=== PATIENT | female | born 1930 | race Caucasian/White ===

== ENCOUNTER 2018-10-21 01:02 | Inpatient (IN) ==
[2018-10-21] MEDS ORDERED: REGLAN IV ONE (01:30)
[2018-10-21] MEDS ORDERED: NS 500 ML IV ONE (01:30)
[2018-10-21] MEDS ORDERED: NS 1,000 ML IV ONE (01:31)
[2018-10-21 02:54] LABS: BASO# 0.01 X1000 (0.0-0.2); BASO% 0.1 % (0.0-0.8); EOS# 0.06 X1000 (0.0-0.7); EOS% 0.5 % (0.0-10.0); HEMATOCRIT 38.1 % (37.0-47.0); HEMOGLOBIN 12.4 g/dL (12.0-16.0); IMM GRAN# 0.05 X1000 (0.0-0.04); IMM GRAN% 0.4 % (0.0-0.5); LYMPH# 0.57 X1000 (1.2-3.4); LYMPH% 4.3 % (20.5-51.1); MCH 30.4 PG (27-31); MCHC 32.5 g/dL (33-37); MCV 93.4 FL (81-99); MONO# 0.91 X1000 (0.11-0.59); MONO% 6.9 % (1.7-9.3); MPV 12.3 FL (7.4-10.4); NEUT# 11.66 X1000 (1.4-6.5); NEUT% 87.8 % (42.2-75.2); PLT 262 X1000 (130-400); RBC 4.08 XMIL (4.2-5.4); RDW 16.4 % (11.5-14.5); WBC 13.26 X1000 (4.8-10.8)
[2018-10-21 03:04] LABS: ALB/GLOB RATIO 1.1; ALBUMIN 4.3 g/dL (3.5-5.0); CALCIUM 10.3 mg/dL (8.8-10.2); CREATININE 1.8 mg/dL (0.5-0.9); POTASSIUM 5.3 mmol/L (3.5-5.1); TOTAL BILIRUBIN 0.35 mg/dL (0.20-1.00); TOTAL PROTEIN 8.1 g/dL (6.3-8.3)
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
--- NOTE | 2018-10-21 06:58 | Diag Imaging Result Doc PS360 ---
CT ABDOMEN/PELVIS W/O CONTRAST - 10/21/2018 INDICATION: N/V COMPARISON: 06/21/2013, 02/16/2018 FINDINGS: There is some mild linear atelectasis in the lung bases. Heart size is top normal. No pericardial effusion. There are cholecystectomy clips. Multicystic left kidney. Stable severe thinning of the abdominal muscle wall. Stable fat-containing left lateral flank hernia. No bowel obstruction or inflammation. No radiodense renal stones. No hydronephrosis or hydroureter. There is some residual barium in the colon from the swallowing study. Stable diverticulosis of the distal colon. Uterus is absent. Urinary bladder and rectum are normal. There are moderate degenerative changes of the spine. No acute or suspicious bony lesion. IMPRESSION: Diverticulosis coli. No acute process. This exam was performed using automated exposure control, adjustment of mA or kV according to patient size, and/or use of iterative reconstruction technique Electronically signed by Ross Keyes 10/21/2018 6:55 AM
[2018-10-21] MEDS ORDERED: ZOFRAN IV PRN (07:54)
[2018-10-21] MEDS ORDERED: TYLENOL PO PRN (07:54)
[2018-10-21] MEDS ORDERED: NS 1,000 ML IV SCH (07:54)
--- NOTE | 2018-10-21 08:26 | HISTORY AND PHYSICAL ---
ADDENDUM: Patient presented with nausea and vomiting starting last night which was intractable. She has had issues with this recently. She has seen Dr. Barry. I think she had a colonoscopy and EGD. All these tests have been within the last couple of days. She had a barium swallow. CT done last night really was unremarkable, but it was done without contrast, which is relatively low yield. Her vitals were unremarkable. She did have a little bit of leukocytosis. She has been treated recently for UTI. In any case, patient was evaluated. She was dehydrated. We will continue to monitor. Get IV fluids and antiemetics. We will go ahead and consult Dr. Barry. We will have him re-evaluate Dr. Lopez. We will resume care here this morning. This is a face-to- face encounter with Victoria Dominguez. cc: Darren Gonzalez MD
[2018-10-21 10:06] LABS: ALB/GLOB RATIO 1.4; ALBUMIN 3.8 g/dL (3.5-5.0); CALCIUM 8.9 mg/dL (8.8-10.2); CREATININE 1.7 mg/dL (0.5-0.9); TOTAL BILIRUBIN 0.39 mg/dL (0.20-1.00); TOTAL PROTEIN 6.6 g/dL (6.3-8.3)
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
[2018-10-21] MEDS: PEPCID IV SCH ×2 (10:21→20:16)
--- NOTE | 2018-10-21 14:03 | GASTROENTEROLOGY CONSULTATION ---
DATE: 10/21/2018 REASON FOR CONSULTATION: Nausea, vomiting, diarrhea. HISTORY OF PRESENT ILLNESS: This is an 88-year-old female known to our practice. She was just seen in the office on 10/11/2018, indications for nausea, abdominal pain, GERD, and dysphagia. She had an EGD on 10/18/2018. Findings showed an esophageal ring, proximal esophagus that was dilated, and mild gastritis. Pathology showed chronic inactive gastritis, H. pylori was negative. She was also referred for a modified barium swallow on 10/20/2018. Findings showed mild presbyesophagus but no evidence of achalasia or aspiration. She had some mild spasms with delayed emptying into the stomach and a small amount of redirection of the bolus observed but there was no repenetration or aspiration noted. The patient states after her barium swallow yesterday, she went home and ate a peach, that is the only thing she had eaten yesterday and almost immediately she states she had nausea, vomiting, and diarrhea. She states she probably vomited over 10 times. She did not see any blood in the emesis. No blood in the stool or black stools. She came in to the emergency room for further evaluation. She states her last bowel movement was early this morning, that is reported as loose, and her last episode of vomiting was last night. Currently, she is feeling some better. She does report some mild abdominal tenderness. She has been treated recently with antibiotics for a urinary tract infection. She has denied chest pain or shortness of breath. No reported fever. PAST MEDICAL HISTORY: GERD, dysphagia with recent esophageal dilation, history of constipation on MiraLAX, history of anemia, cataracts, diverticulosis, dementia, depression/anxiety, hyperlipidemia, hypertension, hypertriglyceridemia, glaucoma, hypothyroidism, obstructive sleep apnea, osteoarthritis, osteoporosis, history of palpitations, history of stroke. PAST SURGICAL HISTORY: Left shoulder surgery, cataract surgery, exploratory laparotomy. The patient has had recent EGD on 10/18/2018. ALLERGIES: Codeine causing hives, sulfonamides with unknown reaction. HOME MEDICATIONS: Tylenol Arthritis 650 mg as needed, aspirin 325 mg daily, BuSpar 10 mg 3 times a day, calcium plus D daily, Catapres 0.1 mg 3 times a day as needed, Lexapro 20 mg daily, Pepcid 20 mg twice daily, Plendil 2.5 mg twice daily, Tricor 145 mg every night, levothyroxine 88 mcg daily, Xalatan eyedrops at night, Cozaar 100 mg daily, magnesium 2 tablets daily, Remeron 15 mg every night, Prilosec 40 mg daily, spironolactone 25 mg daily, zinc 1 daily. SOCIAL HISTORY: Denies tobacco or alcohol use. REVIEW OF SYSTEMS: Per history of present illness. PHYSICAL EXAMINATION: Vital signs: Temperature 98.0, pulse 77, respirations 16, blood pressure 151/57. General: The patient is awake and alert in no acute distress. She states she is feeling some better. HEENT: Normocephalic, atraumatic. Pupils equal, round, and reactive to light. Sclerae nonicteric. Cardiovascular: Regular rate and rhythm. Pulmonary: Lung sounds essentially clear bilaterally. Abdomen: Soft, nondistended. She has some slight tenderness with palpation, otherwise positive bowel sounds. Extremities: No lower extremity edema noted. Neurologic: Cranial nerves II through XII grossly intact. The patient is awake and alert, oriented to person, place, and time. DIAGNOSTIC RESULTS: Laboratory, hematology: WBC 13.26, hemoglobin 12.4, hematocrit 38.1, MCV 93.4, platelet 262. Chemistry: Sodium 137, potassium 5.0, chloride 108, CO2 19, BUN 42, creatinine 1.7, glucose 106, calcium 8.9, magnesium 2.1, total bilirubin 0.39, AST 31, ALT 17, alkaline phosphatase 45. CT scan of the abdomen and pelvis showed diverticulosis. There was a stable fat-containing left flank hernia. No bowel obstruction or inflammation. Some noted residual barium in the colon from recent barium swallow study. ASSESSMENT AND PLAN: 1. Nausea and vomiting, improved. 2. Diarrhea. The patient has had recent urinary tract infection and antibiotic use. Stool studies have been ordered. 3. Dysphagia, nausea, gastroesophageal reflux disease, recent esophagogastroduodenoscopy showing mild gastritis and an esophageal ring that was dilated. She was recommended to continue PPI and started on Carafate. 4. Diarrhea. Stool studies have been ordered. Possible side effect from recent antibiotic use. Will rule out Clostridium difficile. Continue symptomatic treatment and supportive care. Further plans will be made according to her progress. I have discussed this case with Dr. Barry. Thank you for this consultation. Dictated by MALENA Plata for Carlo Barry MD cc: MALENA Calixto MD Scott A. Matthews, MD
[2018-10-21] MEDS: SODIUM CHLORIDE 0.9% INJ SCH (20:16)
[2018-10-21 20:25] LABS: URINE SOURCE CLEAN CATCH
[2018-10-21 20:30] LABS: BILIRUBIN URINE NEGATIVE (NEGATIVE); BLOOD URINE TRACE (NEGATIVE); COLOR YELLOW; GLUCOSE URINE NEGATIVE (NEGATIVE); KETONE URINE NEGATIVE (NEGATIVE); LEUKOCYTES URINE LARGE (NEGATIVE); NITRITE URINE NEGATIVE (NEGATIVE); PH URINE 6.5; PROTEIN URINE NEGATIVE (NEGATIVE); SP GRAVITY URINE 1.012; TURBIDITY URINE CLEAR (CLEAR); UROBILINOGEN URINE NORMAL (NORMAL)
[2018-10-21 20:31] LABS: UR EPITHELIAL CELLS <10 /HPF (<10); URINE BACTERIA 2+ /HPF; URINE RBC <10 /HPF (<10); URINE WBC TNTC /HPF (<10)
[2018-10-21 23:28] LABS: UR CREAT RANDOM 68.2 mg/dL (11-20); UR PROT RANDOM 12.5 mg/dL
[2018-10-22 07:39] LABS: BASO# 0.01 X1000 (0.0-0.2); BASO% 0.3 % (0.0-0.8); EOS# 0.19 X1000 (0.0-0.7); EOS% 4.8 % (0.0-10.0); HEMATOCRIT 30.7 % (37.0-47.0); HEMOGLOBIN 9.7 g/dL (12.0-16.0); IMM GRAN# 0.02 X1000 (0.0-0.04); IMM GRAN% 0.5 % (0.0-0.5); LYMPH# 0.94 X1000 (1.2-3.4); LYMPH% 23.7 % (20.5-51.1); MCH 30.9 PG (27-31); MCHC 31.6 g/dL (33-37); MCV 97.8 FL (81-99); MONO# 0.36 X1000 (0.11-0.59); MONO% 9.1 % (1.7-9.3); MPV 11.8 FL (7.4-10.4); NEUT# 2.45 X1000 (1.4-6.5); NEUT% 61.6 % (42.2-75.2); PLT 197 X1000 (130-400); RBC 3.14 XMIL (4.2-5.4); RDW 16.9 % (11.5-14.5); WBC 3.97 X1000 (4.8-10.8)
[2018-10-22] MEDS: NS 1,000 ML IV SCH (09:46)
[2018-10-22] MEDS: PEPCID IV SCH ×2 (09:47→20:10)
[2018-10-22 10:08] LABS: CALCIUM 7.5 mg/dL (8.8-10.2); CREATININE 1.1 mg/dL (0.5-0.9); POTASSIUM 4.4 mmol/L (3.5-5.1)
--- NOTE | 2018-10-22 11:14 | PROGRESS NOTE ---
DATE: 10/22/2018 SUBJECTIVE: Mrs. Chandler was admitted to [facility] with intractable nausea, vomiting, and diarrhea. Her baseline creatinine of 1.0 had jumped to 1.8. She has had no further nausea or vomiting. Her diarrhea is beginning to taper. Stool studies were negative for Clostridium difficile antigen and toxin. She is tolerating clear liquids without nausea or vomiting. OBJECTIVE: Her blood pressure is fluctuating. Systolic blood pressures have been in the 170s whereas her diastolic blood pressures have ranged from 61 to 68. Temperature 98.1 degrees, pulse 66, respirations 24, BP 179/68. CV regular rate and rhythm. Lungs: Clear. Abdomen: Soft. Good bowel sounds. Diffusely tender. No rebound or guarding. LABS: Various laboratory studies were obtained. A CBC demonstrated white count 3.9, hemoglobin 9.7 hematocrit 30.7 and a platelet count of 197,000. Electrolytes demonstrated the following: Sodium 137, potassium 5.0, BUN 42 creatinine 1.7 and a glucose 106. ASSESSMENT AND PLAN: 1. Intractable nausea, vomiting, and diarrhea. Her nausea and vomiting have resolved. Diarrhea is tapering off. Stool studies were negative for Clostridium difficile toxin. We will continue famotidine 20 mg IV q. 12 hours and Carafate. A recent esophagogastroduodenoscopy demonstrated gastritis with dilatation of an esophageal ring. 2. Acute renal failure. We will continue gentle fluid resuscitation and recheck a basic metabolic profile in the morning. cc: MD Tyshawn Diez MD
[2018-10-22] MEDS: COZAAR PO SCH (17:26)
[2018-10-22] MEDS: SODIUM CHLORIDE 0.9% INJ SCH (20:10)
[2018-10-23] MEDS: NS 1,000 ML IV SCH ×2 (01:55→19:00)
[2018-10-23] MEDS: PEPCID IV SCH ×2 (08:40→20:27)
[2018-10-23] MEDS: COZAAR PO SCH (08:40)
--- NOTE | 2018-10-23 10:57 | Diag Imaging Result Doc PS360 ---
CHEST-PORTABLE - 10/23/2018 INDICATION: cough COMPARISON: 08/20/2017 FINDINGS: The lungs are normally expanded and clear. Heart size and mediastinal contours are normal. No pneumothorax or pleural effusion. IMPRESSION: Negative exam. Electronically signed by Ross Keyes 10/23/2018 10:55 AM
--- NOTE | 2018-10-23 10:59 | PROGRESS NOTE ---
DATE: 10/23/2018 SUBJECTIVE: Mrs. Chandler is tolerating a GI soft diet without nausea, vomiting, and her diarrhea has resolved. Renal function has improved greatly with fluids. Her creatinine has dropped from 1.8 to 1.1. She is with complaint of a persistent nonproductive cough which has been occurring off and on for 1 year. OBJECTIVE: Vital Signs: Temperature 97.9 degrees, pulse 65, respirations 15, blood pressure 184/60. Cardiovascular: Regular rate and rhythm. Lungs: Clear. Abdomen: Soft, nontender, with active bowel sounds. No hepatosplenomegaly. No abdominal bruits. ASSESSMENT AND PLAN: 1. Acute renal failure secondary to volume depletion due to gastrointestinal losses. Renal function has improved greatly. She is approaching her baseline of 1.0. I will stopped the fluids. I will recheck a BMP in the morning. 2. Hypertension. Blood pressure is too high. I will resume amlodipine 2.5 mg b.i.d. I am going to try to hold clonidine if possible because of its sedative affects on older patients. 3. General debility. We will increase physical activity and try to get her sitting up in a chair and walking in the halls. cc: MD Tyshawn Diez MD
[2018-10-23] MEDS: LEVAQUIN PO SCH (13:53)
[2018-10-23] MEDS: BUSPAR PO SCH ×2 (13:53→17:12)
[2018-10-23] MEDS ORDERED: PLENDIL PO ONE (16:45)
[2018-10-23] MEDS: XALATAN 0.005% OPH SOLN BOTH EYES SCH (20:27)
[2018-10-23] MEDS: REMERON PO SCH (20:28)
[2018-10-23] MEDS: PEPCID PO SCH (20:28)
[2018-10-23] MEDS ORDERED: PLENDIL PO SCH (21:00)
[2018-10-24] MEDS: SYNTHROID PO SCH (06:42)
[2018-10-24 07:18] LABS: CALCIUM 8.5 mg/dL (8.8-10.2); CREATININE 1.2 mg/dL (0.5-0.9)
[2018-10-24] MEDS ORDERED: 1/2 NS 500 ML IV ONE (08:28)
[2018-10-24] MEDS: ASPIRIN PO SCH (09:01)
[2018-10-24] MEDS: LEXAPRO PO SCH (09:01)
[2018-10-24] MEDS: BUSPAR PO SCH ×3 (09:02→16:22)
[2018-10-24] MEDS: LEVAQUIN PO SCH (09:02)
[2018-10-24] MEDS: PRILOSEC PO SCH (09:02)
[2018-10-24] MEDS: PLENDIL PO SCH ×2 (09:02→22:12)
[2018-10-24] MEDS: PEPCID PO SCH ×2 (09:02→22:12)
[2018-10-24] MEDS: SLOW-MAG PO SCH (09:02)
[2018-10-24] MEDS: COZAAR PO SCH ×2 (09:03→11:24)
--- NOTE | 2018-10-24 09:15 | PROGRESS NOTE ---
DATE: 10/24/2018 SUBJECTIVE: The patient is lying in bed. Her daughter is present. They both state that she has been coughing, but upon further interview, she recognizes that she has been coughing for over a year now. It is generally nonproductive. She has no shortness of breath. She denies any chest pain or palpitations. She has had no further nausea or vomiting. She is reasonably comfortable but has not really gotten up out of the bed since admission. OBJECTIVE: Temperature is 97.6, pulse 78, respirations 21, blood pressure 140/59, saturation 92% on room air. General: The patient is alert, oriented, conversive and appropriate. Lungs are generally clear to auscultation. She has a somewhat rattly, wet-sounding cough which is confined mostly to the upper airways. There is no wheezing. Cardiovascular: Regular without appreciable murmur or gallop. Extremities: No peripheral edema. Abdomen: Bowel sounds are present. She is nontender. DIAGNOSTIC DATA: Bicarb is 21, creatinine 1.2, calcium 8.5. Urine culture has grown Pseudomonas aeruginosa with no significant resistance pattern. ASSESSMENT AND PLAN: 1. The patient's urinary tract infection is being treated appropriately. The patient apparently has interstitial cystitis and is followed by Dr. Cortez. She is not on any prophylactic antibiotics. This is her third urinary tract infection in the last month to 6 weeks according to the patient. She will likely be discharged on Levaquin. 2. The patient's nausea and vomiting have subsided. 3. Leukocytosis is resolved. 4. The patient's overall physical mobility has been limited. She uses a walker at home. I have encouraged her to get up with assistance in the hospital and to also sit in the chair to normalize her activities as much as possible while still in the hospital. 5. Yesterday, Dr. Hodge had noted the patient's blood pressure was up, and the family is a bit concerned about that. She seems to have a significantly wide pulse pressure, but review of the echocardiogram from 2016 does not suggest any aortic valvular disease, and she has reasonable ejection fraction. In a patient this age, I am not really concerned with occasional systolic readings which are elevated because the diastolics seem to run so low, that I think patients subject to this are usually in danger of orthostasis. The patient has been restarted on felodipine and losartan. We will monitor blood pressure throughout the day. 6. The patient continues to require observation and treatment in the hospital, although if she performs well today, she will likely be able to go home tomorrow or the next day. cc: MD Tyshawn Estrada MD
[2018-10-24] MEDS: PEPCID IV SCH (11:25)
--- NOTE | 2018-10-24 15:07 | GASTROENTEROLOGY PROGRESS NOTE ---
DATE: 10/24/2018 SUBJECTIVE: Patient states her GI symptoms have resolved. She denies nausea or vomiting. Denies diarrhea. She states she is having some problems with her blood pressure that they are working on. Patient's stool test for C. difficile was negative. She did grow Pseudomonas aeruginosa by urine culture. She is on antibiotics. OBJECTIVE: Vital Signs: Temperature 98.1 degrees, pulse 69, respirations 20, blood pressure 172/61. General: Patient is awake, alert, in no acute distress. Abdomen: Soft, nontender. Positive bowel sounds. LABORATORY: Hematology: WBC 3.97, hemoglobin 9.7, hematocrit 30.7, platelets 197,000. Chemistry: Sodium 140, potassium 4.0, chloride 111, CO2 21, BUN 21, creatinine 1.2, glucose 96. Urinalysis, culture showed Pseudomonas aeruginosa. Patient is on antibiotics. Stool studies for C. difficile were negative. ASSESSMENT AND PLAN: 1. Nausea, vomiting, and diarrhea have resolved. 2. Urinary tract infection, on antibiotics. 3. Hypertension, following with her medical doctor. PLAN: We will continue to follow during her hospital course. Her GI symptoms have currently resolved. We will be available and further plans will be made according to her progress. I have discussed this case with Dr. Barry. Dictated by MALENA Plata for Carlo Barry MD cc: MALENA Calixto MD Scott A. Matthews, MD
[2018-10-24] MEDS ORDERED: DUONEB (A & A) INH PRN (16:56)
[2018-10-24] MEDS: TESSALON PO PRN (17:35)
[2018-10-24] MEDS: REMERON PO SCH (22:12)
[2018-10-24] MEDS: XALATAN 0.005% OPH SOLN BOTH EYES SCH (22:12)
[2018-10-25] MEDS: SYNTHROID PO SCH (06:34)
[2018-10-25 06:39] LABS: BASO# 0.01 X1000 (0.0-0.2); BASO% 0.3 % (0.0-0.8); EOS# 0.32 X1000 (0.0-0.7); EOS% 8.3 % (0.0-10.0); HEMATOCRIT 34.9 % (37.0-47.0); HEMOGLOBIN 11.3 g/dL (12.0-16.0); LYMPH# 1.36 X1000 (1.2-3.4); LYMPH% 35.3 % (20.5-51.1); MCH 30.8 PG (27-31); MCHC 32.4 g/dL (33-37); MCV 95.1 FL (81-99); MONO# 0.57 X1000 (0.11-0.59); MONO% 14.8 % (1.7-9.3); MPV 11.6 FL (7.4-10.4); NEUT# 1.59 X1000 (1.4-6.5); NEUT% 41.3 % (42.2-75.2); PLT 234 X1000 (130-400); RBC 3.67 XMIL (4.2-5.4); RDW 16.4 % (11.5-14.5); WBC 3.85 X1000 (4.8-10.8)
[2018-10-25 06:52] LABS: ALB/GLOB RATIO 1.1; ALBUMIN 3.4 g/dL (3.5-5.0); CREATININE 1.1 mg/dL (0.5-0.9); POTASSIUM 3.9 mmol/L (3.5-5.1); TOTAL BILIRUBIN 0.32 mg/dL (0.20-1.00); TOTAL PROTEIN 6.6 g/dL (6.3-8.3)
[2018-10-25] MEDS: LEXAPRO PO SCH (09:04)
[2018-10-25] MEDS: SLOW-MAG PO SCH (09:04)
[2018-10-25] MEDS: ASPIRIN PO SCH (09:04)
[2018-10-25] MEDS: BUSPAR PO SCH ×3 (09:04→17:51)
[2018-10-25] MEDS: PEPCID PO SCH ×2 (09:04→20:35)
[2018-10-25] MEDS: LEVAQUIN PO SCH (09:04)
[2018-10-25] MEDS: PRILOSEC PO SCH (09:04)
[2018-10-25] MEDS: PLENDIL PO SCH ×2 (09:04→20:35)
[2018-10-25] MEDS: COZAAR PO SCH ×2 (09:05)
[2018-10-25] MEDS: TESSALON PO PRN ×2 (09:05→17:53)
--- NOTE | 2018-10-25 13:31 | GASTROENTEROLOGY PROGRESS NOTE ---
DATE: 10/25/2018 SUBJECTIVE: The patient states that she is feeling better. She is hoping to go home today. OBJECTIVE: Vital Signs: Temperature 97.5 degrees, pulse 72, respirations 18, blood pressure of 151/52. General: The patient is awake and in no acute distress. Laboratory: Hematology: WBC 3.85, hemoglobin 11.3, hematocrit 34.9, MCV 95.1, platelets 234,000. Chemistry: Sodium 141, potassium 3.9, chloride 109, CO2 of 18, BUN 21, creatinine 1.1, glucose 100, calcium 9.0. ASSESSMENT AND PLAN: 1. Nausea, vomiting, and diarrhea have resolved. 2. Urinary tract infection. Patient was treated with antibiotics. 3. Hypertension has improved. PLAN: Patient had an EGD as an outpatient. Pathology results showed chronic inactive gastritis, H. pylori was negative. I will recommend patient continue her PPI. Recommended she follow up with us as an outpatient. We will continue to follow during her hospital course but I believe she may be discharged today or tomorrow. I have discussed this case with Dr. Barry. Dictated by MALENA Plata for Carlo Barry MD cc: MALENA Calixto MD Scott A. Matthews, MD
[2018-10-25] MEDS: XALATAN 0.005% OPH SOLN BOTH EYES SCH (20:35)
[2018-10-25] MEDS: REMERON PO SCH (20:35)
--- NOTE | 2018-10-25 21:21 | PROGRESS NOTE ---
DATE: 10/25/2018 SUBJECTIVE: The patient's chart was reviewed. In summary, the patient was admitted on 10/22/2018 with abdominal pain, nausea, vomiting, and diarrhea. The patient was diagnosed immediately with volume depletion and acute renal failure. White blood cell count was noted to be elevated at 13.26. Urinalysis revealed too many to count white blood cells. The patient was placed on antibiotic intervention. C. diff toxin returned negative. Urine culture returned positive for Pseudomonas. With antibiotic intervention and supportive care, the patient's overall condition has improved. She has had no further episodes of diarrhea since being in an inpatient. The patient had been doing quite well in regards to nausea and vomiting. Prior to my arrival this evening, unfortunately, she did have an additional episode. Energy level is slowly improving. She is working with physical therapy. P.o. intake, until today, had demonstrated improvement. She denies fevers, chills, shortness of breath, or chest discomfort. OBJECTIVE: Vital signs: T-max 98.2 degrees, heart rate 63 to 103, respirations 18 to 20, blood pressure 123 to 152 over 48 to 56. General: No acute distress. Cardiovascular: Regular rate and rhythm. No significant murmurs, rubs, or gallops. Pulmonary: Clear to auscultation bilaterally. Abdomen: Soft, nontender, nondistended. Positive bowel sounds. Extremities: Moves all extremities well. No significant clubbing, cyanosis, or edema. Dermatologic: Evaluation reveals no evidence of rash. LABORATORY DATA: White blood cell count 3.85, hemoglobin 11.3, hematocrit 34.9, platelet count 234,000. Sodium 141, potassium 3.9, chloride 109, bicarb 28, BUN 21, creatinine 1.1, glucose 100, calcium 9.0, total bilirubin 0.32, total protein 6.6, albumin 3.4, alkaline phosphatase 51, AST 52, ALT 29. ASSESSMENT AND PLAN: 1. Volume depletion/dehydration - The patient has achieved improvement with IV hydration. Renal function has improved as described below. 2. Acute renal failure - The patient's creatinine was noted to be 1.7 upon admission. Creatinine today is 1.1. We will continue to encourage adequate hydration. 3. Intractable nausea, vomiting, and diarrhea. I appreciate Dr. Barry's consultation. Clostridium difficile toxin returned negative. Overall, symptoms have improved considerably. At this point, I am concerned the primary diagnosis is likely a urinary tract infection. We will treat as described below. 4. Urinary tract infection - Urine culture grew Pseudomonas. We will continue levofloxacin therapy. 5. Hypertension. Patient's blood pressure is reasonably controlled on her current regimen. 6. Disposition - At this point, patient continues to require care home care in a hospital setting. We will plan discharge home once appropriate. cc: Tyshawn Lopez MD
[2018-10-26] MEDS: SYNTHROID PO SCH (06:31)
[2018-10-26 08:11] VITALS: BP 168/53
[2018-10-26] MEDS: LEXAPRO PO SCH (08:53)
[2018-10-26] MEDS: BUSPAR PO SCH (08:55)
[2018-10-26] MEDS: COZAAR PO SCH (08:55)
[2018-10-26] MEDS: LEVAQUIN PO SCH (08:55)
[2018-10-26] MEDS: PRILOSEC PO SCH (08:55)
[2018-10-26] MEDS: PEPCID PO SCH (08:56)
[2018-10-26] MEDS: ASPIRIN PO SCH (08:56)
[2018-10-26] MEDS: SLOW-MAG PO SCH (08:56)
[2018-10-26] MEDS: PLENDIL PO SCH (08:56)
--- NOTE | 2018-10-27 00:34 | DISCHARGE SUMMARY ---
ADMISSION DATE: 10/21/2018 DISCHARGE DATE: 10/26/2018 ADMISSION DIAGNOSIS: 1. Abdominal pain. 2. Nausea. 3. Vomiting. 4. Diarrhea. DISCHARGE DIAGNOSES: 1. Volume depletion/dehydration, resolved. 2. Acute renal failure, resolved. 3. Intractable nausea, vomiting, and diarrhea, resolved. 4. Urinary tract infection, improving. 5. Hypertension, present on arrival. CONSULTATIONS: Dr. Barry with Gastroenterology was consulted for further evaluation and management of intractable nausea, vomiting, and diarrhea. PROCEDURES: 1. CT scan of the abdomen and pelvis was performed on 10/21/2018 which revealed diverticulosis coli. No acute process. 2. Chest x-ray was performed on 10/23/2018 which revealed negative examination. HISTORY AND PHYSICAL EXAMINATION: See admit note. PHYSICAL EXAMINATION PRIOR TO DISCHARGE: Vital Signs: Temperature 97.6 degrees, heart rate 68, respirations 18, blood pressure is 168/53. General: Elderly, no acute distress. Cardiovascular: Regular rate and rhythm. No significant murmurs, rubs, or gallops. Pulmonary: Clear to auscultation bilaterally. Abdomen: Soft, nontender, nondistended. Positive bowel sounds. Extremities: Moves all extremities well. [*] edema. Dermatologic: Evaluation reveals no evidence of rash. LABORATORY DATA: Prior to discharge, none. HOSPITAL COURSE: Patient was admitted as per history and physical examination. Hospital course per condition is as follows: 1. Volume depletion/dehydration. Upon admission, patient was noted to be significantly volume deplete secondary to intractable nausea, vomiting, and diarrhea. With IV hydration, patient achieved euvolemia but we will follow this as an outpatient. 2. Acute renal failure. Upon admission, creatinine was noted to be 1.7. With hydration, this improved to 1.1. We will continue to follow this as an outpatient. 3. Intractable nausea, vomiting, and diarrhea. Appreciate Dr. Barry's consultation. Clostridium difficile toxin returned negative. With supportive care, patient's condition resolved. Question is raised as to the etiology. Certainly, a viral illness is to be considered. Additionally, patient was diagnosed with a urinary tract infection. The patient may have manifested systemic symptoms associated. We will continue treatment of this as below. 4. Urinary tract infection. Upon admission, urinalysis returned abnormal. Urine culture grew Pseudomonas. The patient will complete an additional 10 days of levofloxacin therapy as an outpatient. We will need to consider whether suppressive therapy is necessary as an outpatient. 5. Hypertension. Patient was maintained on her home medications while hospitalized. Blood pressure remained reasonably controlled. 6. Discharge condition: Good. DISPOSITION: Discharged to home. MEDICATIONS: 1. Acetaminophen 650 mg every 6 hours as needed. 2. Levofloxacin 250 mg daily for 10 days. 3. Lexapro 20 mg daily. 4. Xalatan eye drops 1 drop each eye at bedtime. 5. Omeprazole 40 mg daily. 6. Fenofibrate 145 mg at bedtime. 7. Aspirin 325 mg daily. 8. Pepcid 20 mg twice daily. 9. Spironolactone 25 mg daily. 10. Buspirone 10 mg 3 times daily. 11. Felodipine 2.5 mg twice daily. 12. Caltrate plus vitamin D daily. 13. Clonidine 0.1 mg 3 times daily as needed for systolic blood pressure greater than 160. 14. Zinc 1 capsule daily. 15. Synthroid 88 mcg daily. 16. Losartan 100 mg daily. 17. Mirtazapine 30 mg at bedtime. FOLLOWUP: The patient is to follow up with me in approximately 1 to 2 weeks. cc: Tyshawn Lopez MD
== END 2018-10-26 11:00 | disposition home health service (06) | DRG 683 ==
LOC: SUPCPDRO → ED 01:02 → 3N 08:04
PROVIDERS: ADMIT Internal Medicine; ATTEND Internal Medicine
CPT/HCPCS: 71010; 71045; 74176; 74230; 80048; 80053; 81001; 82570; 83735; 84156; 84300; 85025; 87077; 87088; 87186; 87324; 88305; 88312; 92611; 94760; 94761; 96374; 97162; 97530; 99285; A9270; J2405; J2765; J7030; J7040; S0028